=== PATIENT | female | born 2005 | race Caucasian/White ===

== ENCOUNTER 2024-05-05 19:48 | Emergency (ER) | payer OTHER, SELFPAY ==
[2024-05-05 20:18] VITALS: PULSE 77; RESP 16; TEMP 36.6; O2SAT 100
[2024-05-05] MEDS: TETANUS,DIPHTHERIA,AC PERTUSSIS ADULT (0.5 ML) BOOSTRIX IM (22:39)
[2024-05-05 23:34] LABS: HIV 1/2 Ab P24 Ag Result Negative (Negative)
[2024-05-05 23:53] LABS: Hepatitis B Surface Anti Res Positive; Hepatitis C Virus Antibody Negative (Negative)
--- NOTE | 2024-05-06 00:02 | ED.GENADULT ---
HPI - General Adult General Chief complaint: Recheck/Abnormal Lab/Rx Stated complaint: stuck by needle at work, told to come here Time Seen by Provider: 05/05/24 23:02 Source: patient Mode of arrival: ambulatory Limitations: no limitations History of Present Illness HPI narrative: This is a 18-year-old female who presents to the ED for needlestick injury that occurred while working at the [employer] today. She was giving an IM vaccination when the patient flinched. Reports that after she stuck the person, the flinch caused patient to accidentally stuck herself in the finger. The person's of her controlled are concerning for HIV, hep B or hep C. she is here for routine blood draw for needlestick. Related Data Allergies Allergy/AdvReac Type Severity Reaction Status Date / Time No Known Allergies Allergy Verified 05/05/24 19:50 Review of Systems Review of Systems: All systems as dictated in HPI Exam Narrative: GENERAL: Well-appearing, well-nourished, and in no acute distress. HEAD: Normocephalic, atraumatic. EYES: PERRLA and EOMI. ENT: Nares clear, no rhinorrhea or epistaxis. Mucous membranes moist. Oropharynx without tonsillar hypertrophy exudate or other lesions. NECK: Supple. No adenopathy or masses. CHEST: No respiratory distress. Clear to auscultation. No wheezes rales or rhonchi HEART: Regular rate and rhythm. No murmur heard. Normal peripheral pulses. ABDOMEN: Soft, nontender, nondistended, normal active bowel sounds. MSK: Normal range of motion. No edema. SKIN: Warm, dry, no rash. NEURO: Alert and oriented x4. No focal deficits. PSYCH: Normal mood and affect. Course Vital Signs Vital signs: Vital Signs Temperature 98 F 05/05/24 20:18 Pulse Rate 77 05/05/24 20:18 Respiratory Rate 16 05/05/24 20:18 Pulse Oximetry 100 05/05/24 20:18 Oxygen Delivery Room Air 05/05/24 20:18 Temperature 98 F 05/05/24 20:18 Pulse Rate 77 05/05/24 20:18 Respiratory Rate 16 05/05/24 20:18 Pulse Oximetry 100 05/05/24 20:18 Oxygen Delivery Room Air 05/05/24 20:18 Medical Decision Making MDM Narrative Medical decision making narrative: This is a 18 yo female who presents to the ED for blood draw for needlestick injury a work today. She works at a local pharmacy. Vitals are normal. Exam is benign. HIV, hep B, hep C labs were drawn. Patient will be discharged in stable condition. Supportive measures discussed and return precautions given. Patient is understanding and agreeable with plan for discharge with PCP follow-up. Vital Signs Vital Signs: Vital Signs Temperature 98 F 05/05/24 20:18 Pulse Rate 77 05/05/24 20:18 Respiratory Rate 16 05/05/24 20:18 Pulse Oximetry 100 05/05/24 20:18 Oxygen Delivery Room Air 05/05/24 20:18 Temperature 98 F 05/05/24 20:18 Pulse Rate 77 05/05/24 20:18 Respiratory Rate 16 05/05/24 20:18 Pulse Oximetry 100 05/05/24 20:18 Oxygen Delivery Room Air 05/05/24 20:18 Lab Data Labs: Lab Results 05/05/24 Range/Units 22:35 Hep Bs Antibody Positive Hepatitis C Ab Screen Negative (Negative) HIV 1&2 Ab/P24 Ag 4thGn Negative (Negative) Discharge Plan Discharge Clinical Impression: Needle stick injury Patient Disposition: Home, Self-Care Condition: Stable Instructions: Antibiotic Form Additional Instructions: Please follow-up with your regular doctor and workplace for further management of this needlestick injury. If you have any new or worsening symptoms please return to the ER for further evaluation. Follow-up/Referrals: PHYSICIAN NOT ON STAFF,NONSTAFF [Primary Care Provider] - Time of Disposition: 00:05
== END 2024-05-06 00:10 | disposition home or self-care (01) ==
PROVIDERS: Emergency Provider Physician Assistant
DX: S61.239A Puncture wound without foreign body of unspecified finger without damage to nail, initial encounter (principal); Z23 Encounter for immunization; W46.1XXA Contact with contaminated hypodermic needle, initial encounter
CPT/HCPCS: 36415; 86703; 86706; 86803; 90471; 90715; 99283; G0432